=== PATIENT | male | born 1970 | race Two or more races ===

== ENCOUNTER 2017-08-11 16:03 | Emergency (ER) | payer MEDICAID ==
[~2017-08-11] VITALS: Ht 175.3 cm; Wt 93.0 kg
--- NOTE | 2017-08-11 16:15 | NUR ---
PT KARLEE , PER RA STATES "AT 1500 WHILE IN THE COUCH, EYES ROLLED BACK AND HE CLENCHED HIS ARMS ON THE CHEST WITH SALIVA OUT OF HIS MOUTH NOT TALKING" PT AOX3 RR EVEN AND UNLABORED. NO SOB NOTED. NAD NOTED. NO NVD AT THIS TIME. PT GOWNED AND PLACED ON MONITOR WAITING FOR MD. IV PLACED PER RA 18G INTACT AND PATENT. NO S/S INFECTION NOTED GOOD BLOOD RETURN.
[2017-08-11 16:27] LABS: BASOPHILS # (AUTO) 0.1 /CMM (0.0-0.2); BASOPHILS % (AUTO) 0.8 % (0.0-2.0); EOSINOPHILS % (AUTO) 1.6 % (0.0-6.0); HEMATOCRIT 47 % (39-51); HEMOGLOBIN 15.9 g/dL (13.5-17.5); LYMPHOCYTES # (AUTO) 2.1 /CMM (0.8-4.8); LYMPHOCYTES % (AUTO) 24.6 % (20.0-44.0); MEAN CORPUSCULAR HEMOGLOBIN 31 PG (26.0-33.0); MEAN CORPUSCULAR HGB CONC 34 g/dl (31.0-36.0); MEAN CORPUSCULAR VOLUME 93 fL (80-96); MONOCYTES # (AUTO) 0.7 /CMM (0.1-1.30); MONOCYTES % (AUTO) 7.8 % (2.0-12.0); NEUTROPHILS # (AUTO) 5.3 /CMM (1.8-8.9); NEUTROPHILS % (AUTO) 65.2 % (43.0-81.0); PLATELET COUNT (AUTO) 234 /CMM (150-450); RDW COEFFICIENT OF VARIATION 12.9 (11.5-15.0); RED BLOOD CELL COUNT(AUTO) 5.11 MIL/uL (4.5-6.0); WHITE BLOOD COUNT (AUTO) 8.3 K/uL (4.3-11.0)
[2017-08-11] MEDS ORDERED: IV NS 0.9% 1,000 ML BAG IV ONE (16:30)
[2017-08-11 16:34] LABS: CALCIUM, SERUM 9.2 mg/dL (8.5-10.1); CREATININE 1.1 mg/dL (0.6-1.3); POTASSIUM 3.8 mmol/L (3.5-5.1)
--- NOTE | 2017-08-11 16:36 | NUR ---
PT TO RADIOLOGY FOR CT IN STABLE CONDITION.
[2017-08-11 16:39] LABS: INR 0.93 (0.85-1.15)
[2017-08-11 16:40] LABS: ALBUMIN 3.6 g/dL (3.4-5.0); BILIRUBIN,DIRECT 0.1 mg/dL (0.0-0.2); BILIRUBIN,TOTAL 0.4 mg/dL (0.2-1.0); TOTAL PROTEIN, SERUM 7.4 g/dL (6.4-8.2)
--- NOTE | 2017-08-11 17:00 | NUR ---
CALLED , LEFT MESSAGE ON VOICEMAIL
[2017-08-11] MEDS ORDERED: ONDANSETRON HCL/PF 4 MG/2 ML VIAL ONE (17:22)
[2017-08-11] MEDS ORDERED: MORPHINE SULFATE INJ 4 MG/ML DISP.SYRIN ONE ×2 (17:24→19:01)
--- NOTE | 2017-08-11 17:25 | NUR ---
CALLED , LEFT MESSAGE ON VOICEMAIL
[2017-08-11] MEDS ORDERED: ONDANSETRON HCL/PF - ER 4 MG/2 ML VIAL IV ONE (17:30)
[2017-08-11] MEDS ORDERED: MORPHINE SULFATE INJ 2 MG/ML DISP.SYRIN IV ONE ×2 (17:30→19:00)
[2017-08-11] MEDS ORDERED: NICARDIPINE IN NACL, ISO-OSM 200 ML IV PRN ×2 (18:00→19:30)
[2017-08-11] MEDS ORDERED: LEVETIRACETAM (500MG) 500 MG in IV NS 0.9% 100 ML IV SCH (18:00)
--- NOTE | 2017-08-11 18:00 | NUR ---
RECEIVED CALL FROM TABBY AT THE [facility], GAVE HER PT INFO AND FAXED FACESHEET TO HER AT [phone]
[2017-08-11] MEDS ORDERED: NICARDIPINE IN DEXTROSE,ISO-OS 200 ML IV ONE ×2 (18:17→19:27)
--- NOTE | 2017-08-11 18:29 | NUR ---
RECEIVED CALL FROM TABBY AT [facility], PT GOING TO ROOM 4516, NUMBER TO GIVE REPORT IS [phone] EXT [phone], [facility] SHOULD ARRIVE BY 191.
--- NOTE | 2017-08-11 18:47 | NUR ---
REPORT GIVEN TO LILIAN SAMPSON FOR [facility].
--- NOTE | 2017-08-11 18:56 | NUR ---
ENDORSED PT TO RN HOV FOR [facility].
[2017-08-11 19:21] VITALS: BP 139/74
--- NOTE | 2017-08-11 19:24 | NUR ---
Patient Tranfers to outside Facility Physician:TAMIA Location:[facility]
--- NOTE | 2017-08-11 19:24 | NUR ---
TRANSPORT CREW BEDSIDE FOR REPORT. REPORT GIVEN. PT BEING TRANSFERRED [facility]
--- NOTE | 2017-08-11 19:31 | NUR ---
Note undone in EDM - 08/11/17 at 1934 by NESS REPORT GIVEN TO CCT JADIEL GUTIÉRREZ FOR [facility], PT AWARE OF TRANSPORT, IV'S INTACT AND PATENT. NO S/S INFECTION OR INFILTRATION NOTED. PT WITH ALL PERSONAL BELONGINGS. PT TO BE TRANSPORTED VIA GURNEY. VSS ENDORSED TO CCT JADIEL GUTIÉRREZ TO INFUSE WHEN CURRENT BACK IS COMPLETE DURING TRANSPORT.
--- NOTE | 2017-08-11 19:31 | NUR ---
REPORT GIVEN TO CCT JADIEL GUTIÉRREZ FOR [facility], PT AWARE OF TRANSPORT, IV'S INTACT AND PATENT. NO S/S INFECTION OR INFILTRATION NOTED. PT WITH ALL PERSONAL BELONGINGS. PT TO BE TRANSPORTED VIA GURNEY. VSS ENDORSED TO [facility] JADIEL GUTIÉRREZ TO INFUSE CARDINE BAG WHEN CURRENT BACK IS COMPLETE DURING TRANSPORT.
== END 2017-08-11 19:36 | disposition short-term general hospital (02) ==
LOC: ER 16:08
DX: S06.6X0A Traumatic subarachnoid hemorrhage without loss of consciousness, initial encounter (principal); W18.39XA Other fall on same level, initial encounter; Y93.89 Activity, other specified; Y92.89 Other specified places as the place of occurrence of the external cause; Y99.8 Other external cause status
CPT/HCPCS: 36415; 70450; 71045; 80048; 80076; 85025; 85730; 87081; 93005; 96365; 96375; 99291; 99292; A4606; J1953; J2270; J2405 ×2; J7030 ×2; Z7610